=== PATIENT | female | born 1995 | race Caucasian/White ===

== ENCOUNTER 2018-03-19 19:29 | Emergency (ER) | payer MEDICAID ==
[~2018-03-19] VITALS: Ht 165.1 cm; Wt 79.6 kg
[2018-03-19 19:34] VITALS: BP 138/79
--- NOTE | 2018-03-19 19:40 | NUR ---
PT ASSISTED BACK TO LOBBY
--- NOTE | 2018-03-19 19:46 | NUR ---
PT AMBULATED TO ER BED 10
--- NOTE | 2018-03-19 19:54 | NUR ---
C/O RT 1ST TOE PAIN X 2 MONTHS. +ERYTHEMA, -EDEMA, -DISCHARGE DENIES PMH/RX/OTC PT DENIES N/V/D; SKIN IS INTACT, PINK/WARM/DRY; AAOX4, PERRL, WITH EVEN AND STEADY GAIT; LUNGS CLEAR BL, BREATHING UNLABORED; HR EVEN AND REGULAR, BL PERIPHERAL PULSES PRESENT; BS ACTIVE X4, NO TENDERNESS TO PALPATION, NO HEPATOSPLENOMEGALLY PALPATED, RESONANT TO PERCUSSION; PT DENIES ANY FEVER, CP, SOB, OR COUGH AT THIS TIME; PT STATES 2/10 PAIN IN R 1ST TOE AT THIS TIME; VSS; PATIENT POSITIONED FOR COMFORT; HOB ELEVATED; BEDRAILS UP X2; BED DOWN.
[2018-03-19] MEDS ORDERED: IBUPROFEN 600 MG TAB PO ONE (20:05)
[2018-03-19] MEDS ORDERED: CEPHALEXIN 500 MG CAP PO ONE (20:05)
--- NOTE | 2018-03-19 20:45 | NUR ---
WAITING FOR ER MD DR AMIN DISCHARGE INSTRUCTIONS AND ANY PRESCRIPTIONS.
--- NOTE | 2018-03-19 21:05 | NUR ---
WAITING FOR ER MD DR AMIN DISCHARGE INSTRUCTIONS AND ANY PRESCRIPTIONS.
[2018-03-19 21:11] VITALS: BP 138/67
--- NOTE | 2018-03-19 21:11 | NUR ---
Patient discharged with v/s stable. Written and verbal after care instructions given and explained. Patient alert, oriented and verbalized understanding of instructions. Ambulatory with steady gait. All questions addressed prior to discharge. ID band removed. Patient advised to follow up with PMD. Rx of MUPIROCIN AND KEFLEX AND IBUPROFEN given. Patient educated on indication of medication including possible reaction and side effects. Opportunity to ask questions provided and answered.
== END 2018-03-19 21:11 | disposition home or self-care (01) ==
LOC: MED 19:29
DX: L03.031 Cellulitis of right toe (principal)
CPT/HCPCS: 99283

== ENCOUNTER 2021-12-25 22:51 | Emergency (ER) | payer MEDICAID, OTHER ==
[~2021-12-25] VITALS: Ht 165.1 cm; Wt 97.5 kg
[2021-12-25 22:54] VITALS: BP 148/82
[2021-12-25] MEDS: HYDROcodone/APAP 7.5/325 MG 1 TAB PO ONE (23:55)
[2021-12-26 01:37] VITALS: BP 127/52
--- NOTE | 2021-12-26 01:39 | NUR ---
Patient discharged with v/s stable. Written and verbal after care instructions given and explained. Patient verbalized understanding. Ambulatory with steady gait. All questions addressed prior to discharge. Advised to follow up with PMDo copy of radiology results given to pt.
== END 2021-12-26 01:39 | disposition home or self-care (01) ==
LOC: MED 22:51
DX: S09.90XA Unspecified injury of head, initial encounter (principal); V49.49XA Driver injured in collision with other motor vehicles in traffic accident, initial encounter; Y93.89 Activity, other specified; Y92.89 Other specified places as the place of occurrence of the external cause; Y99.8 Other external cause status
CPT/HCPCS: 70450; 72125; 81025; 99284